=== PATIENT | male | born 1945 | race Caucasian/White ===

== ENCOUNTER 2018-01-21 12:48 | Inpatient (IN) | payer MEDICARE, OTHER ==
[~2018-01-21] VITALS: Ht 182.9 cm; Wt 92.7 kg
[~2018-01-21 12:48] MED LIST: ALB0.5UD IH; ALBU6.7H INH; ALPR-624 PO; ASPI-1265 PO; ATOR10TA87 PO; BUDE10.2 INH; CARCD120C PO; CHOL100046 PO; CITA20TA19 PO; DABI150C PO; HCTZ25T PO; LISI-600 PO; OMEG10006 PO; OMEP20TA5 PO; POTA20TA19 PO; TIOT18CA7 IH; TRAM50TA2 PO; TRAZ-91 PO; [UNRECOGNIZED DRUG - CODE] PO
[2018-01-21 13:49] LABS: BASOPHILS % (AUTO) 0.2 % (0-1); EOSINOPHILS # (AUTO) 0.3 X10'3 (0-0.9); EOSINOPHILS % (AUTO) 2.4 % (0-6); HEMATOCRIT 45.5 % (42.0-52.0); HEMOGLOBIN 14.6 g/dl (14.0-17.9); LYMPHOCYTES # (AUTO) 1.1 X10'3 (1.1-4.8); MEAN CORPUSCULAR HEMOGLOBIN 29.1 PG (27.0-31.0); MEAN CORPUSCULAR VOLUME 90.9 FL (78-98); MONOCYTES # (AUTO) 1.1 X10'3 (0-0.9); MONOCYTES % (AUTO) 8.7 % (2-12); NEUTROPHILS # (AUTO) 9.8 X10'3 (1.8-7.7); NEUTROPHILS % (AUTO) 79.7 % (42-75); PLATELET COUNT 390 X10'3 (140-440); RED BLOOD COUNT 5.01 X10'6 (4.70-6.10); RED CELL DISTRIBUTION WIDTH 13.3 % (11.5-14.5); WHITE BLOOD COUNT 12.3 X10'3 (4.5-11.0)
[2018-01-21] MEDS ORDERED: normal saline 1000ML IV soln IVB ONE (13:50)
[2018-01-21] MEDS ORDERED: levoFLOXACIN-Levaquin 750MG/D5 150 ML IV ONE (13:55)
[2018-01-21 14:05] LABS: ALANINE AMINOTRANSFERASE 26 U/L (12-78); ALBUMIN 3.3 G/DL (3.4-5.0); ALBUMIN/GLOBULIN RATIO 0.7 (1.1-1.5); ALKALINE PHOSPHATASE 116 IU/L (46-116); ANION GAP 6 (8-16); ASPARTATE AMINO TRANSFERASE 23 U/L (10-37); BILIRUBIN,TOTAL 0.6 MG/DL (0.1-1.0); BLOOD UREA NITROGEN 20 MG/DL (7-18); BUN/CREATININE RATIO 13.3 (5.4-32.0); CALCIUM 9.3 MG/DL (8.5-10.1); CHLORIDE 87 MMOL/L (99-107); GLUCOSE 175 MG/DL (70-104); SODIUM 132 MMOL/L (135-145); TOTAL CARBON DIOXIDE 39.5 MMOL/L (24-32); eGFR 46 ML/MIN
[2018-01-21 14:06] LABS: POTASSIUM 2.4 MMOL/L (3.5-5.1)
[2018-01-21] MEDS ORDERED: potassium Cl oral solution 20 MEQ/15 ML PO ONE (14:10)
[2018-01-21 14:13] LABS: INR 1.4 INR; PARTIAL THROMBOPLASTIN TIME 49 SECONDS (22-32); PROTHROMBIN TIME 13.7 SECONDS (9.0-12.0)
[2018-01-21] MEDS ORDERED: potassium Cl 40MEQ/NS 500ml 500 ML IV PRN (15:40)
[2018-01-21] MEDS ORDERED: potassium Cl 20 mEq SR tablet PO PRN (15:40)
[2018-01-21] MEDS ORDERED: mag hydrox/Alum hydrox/simeth 30ml oral suspension PO PRN (15:40)
[2018-01-21] MEDS ORDERED: ondansetron/PF 4mg/2ml inj IV PRN (15:40)
[2018-01-21] MEDS ORDERED: acetaminophen 325mg tablet PO PRN (15:40)
[2018-01-21] MEDS ORDERED: magnesium hydroxide 30ml (MOM) UD suspension PO PRN (15:40)
[2018-01-21] MEDS: K and/or MAG REPLACEMENT MC SCH (15:40)
[2018-01-21] MEDS ORDERED: NITR0.4T51 SL (16:01)
[2018-01-21] MEDS ORDERED: COLC0.6T69 PO (16:01)
[2018-01-21] MEDS ORDERED: TRAZ-218 PO (16:01)
[2018-01-21] MEDS ORDERED: FURO40TA4 PO (16:01)
[2018-01-21] MEDS ORDERED: LISI-600 PO (16:01)
[2018-01-21] MEDS ORDERED: HYDR25TA4 PO (16:01)
[2018-01-21] MEDS ORDERED: traMADol 50MG tablet PO PRN (17:25)
[2018-01-21] MEDS ORDERED: nitroGLYCERIN 0.4mg SUBLingual tab SL PRN (17:25)
[2018-01-21] MEDS ORDERED: colchicine 0.6mg tablet PO PRN (17:25)
[2018-01-21] MEDS ORDERED: non-formulary drug (Albuterol Sulfate (Proventil Hfa) 2 PUFFS) INH PRN (17:25)
[2018-01-21] MEDS ORDERED: ALPRAZolam 0.5mg tablet PO PRN (17:25)
[2018-01-21] MEDS ORDERED: albuterol 2.5 mg/0.5ml nebule NEB PRN (17:25)
[2018-01-21] MEDS ORDERED: albuterol 2.5 MG/3 ML nebule NEB PRN (17:48)
[2018-01-21] MEDS: normal saline 1000ml 1,000 ML IV SCH (17:59)
[2018-01-21 19:00] VITALS: BP 143/48
[2018-01-21] MEDS ORDERED: budesonide 0.5mg/2ml UD nebule IH SCH (20:00)
[2018-01-21] MEDS ORDERED: albuterol 2.5 MG/3 ML nebule NEB SCH (20:00)
[2018-01-21] MEDS ORDERED: heparin, porcine 5000 units/ml vial SQ SCH (20:00)
[2018-01-21] MEDS ORDERED: ipratropium 0.5 MG/2.5ML nebule IH SCH (20:00)
[2018-01-21] MEDS: budesonide 0.5mg/2ml UD nebule IH SCH (20:21)
[2018-01-21] MEDS: ipratropium/albuterol 3ml nebule NEB SCH (20:21)
[2018-01-21] MEDS: dabigatran 150mg capsule PO SCH (20:59)
[2018-01-21] MEDS: potassium Cl 20 mEq SR tablet PO PRN (20:59)
[2018-01-21] MEDS ORDERED: atorvastatin 10mg tablet PO SCH (21:00)
[2018-01-21] MEDS ORDERED: lisinopril 20mg tablet PO SCH (21:00)
[2018-01-21] MEDS ORDERED: traZODone 50mg tablet PO SCH (21:00)
[2018-01-22] VITALS: BP 114/51
[2018-01-22] MEDS: normal saline 1000ml 1,000 ML IV SCH ×2 (01:53→11:38)
[2018-01-22] MEDS: potassium Cl 20 mEq SR tablet PO PRN (01:53)
[2018-01-22] MEDS: ipratropium/albuterol 3ml nebule NEB SCH ×3 (02:36→14:38)
[2018-01-22 05:15] LABS: BASOPHILS % (AUTO) 0.2 % (0-1); EOSINOPHILS # (AUTO) 0.3 X10'3 (0-0.9); EOSINOPHILS % (AUTO) 3.2 % (0-6); HEMATOCRIT 38.5 % (42.0-52.0); HEMOGLOBIN 12.4 g/dl (14.0-17.9); LYMPHOCYTES # (AUTO) 1.1 X10'3 (1.1-4.8); LYMPHOCYTES % (AUTO) 11.9 % (21-51); MEAN CORPUSCULAR HEMOGLOBIN 29.5 PG (27.0-31.0); MEAN CORPUSCULAR HGB CONC 32.1 % (33.0-36.5); MEAN CORPUSCULAR VOLUME 91.8 FL (78-98); MEAN PLATELET VOLUME 8.2 FL (7.4-10.4); MONOCYTES # (AUTO) 1.1 X10'3 (0-0.9); MONOCYTES % (AUTO) 11.9 % (2-12); NEUTROPHILS # (AUTO) 6.8 X10'3 (1.8-7.7); NEUTROPHILS % (AUTO) 72.8 % (42-75); PLATELET COUNT 301 X10'3 (140-440); RED BLOOD COUNT 4.19 X10'6 (4.70-6.10); RED CELL DISTRIBUTION WIDTH 13.5 % (11.5-14.5); WHITE BLOOD COUNT 9.3 X10'3 (4.5-11.0)
[2018-01-22 05:24] LABS: ALBUMIN 2.4 G/DL (3.4-5.0); ANION GAP 6 (8-16); BLOOD UREA NITROGEN 17 MG/DL (7-18); BUN/CREATININE RATIO 16.8 (5.4-32.0); CALCIUM 8.2 MG/DL (8.5-10.1); CHLORIDE 95 MMOL/L (99-107); CREATININE 1.01 MG/DL (0.60-1.10); GLUCOSE 97 MG/DL (70-104); SODIUM 139 MMOL/L (135-145); TOTAL CARBON DIOXIDE 38.3 MMOL/L (24-32); eGFR 73 ML/MIN
[2018-01-22 05:28] LABS: POTASSIUM 2.4 MMOL/L (3.5-5.1)
[2018-01-22] MEDS: potassium Cl 40MEQ/NS 500ml 500 ML IV PRN ×2 (05:42→10:19)
[2018-01-22 07:00] VITALS: BP 113/60
[2018-01-22] MEDS ORDERED: pantoprazole 40mg Tablet.DR PO SCH (07:30)
[2018-01-22] MEDS ORDERED: vitamin D (cholecalciferol) 1,000 unit tablet PO SCH (08:00)
[2018-01-22] MEDS ORDERED: citalopram 20mg tablet PO SCH (08:00)
[2018-01-22] MEDS ORDERED: acetaZOLAMIDE 250mg tablet PO SCH (08:00)
[2018-01-22] MEDS: K and/or MAG REPLACEMENT MC SCH (08:17)
[2018-01-22] MEDS: dabigatran 150mg capsule PO SCH (09:21)
[2018-01-22] MEDS: budesonide 0.5mg/2ml UD nebule IH SCH (09:27)
[2018-01-22] MEDS ORDERED: diltiazem CD 120mg capsule (once-daily) PO SCH (21:00)
== END 2018-01-22 17:35 | disposition home or self-care (01) | DRG 682 ==
LOC: ER 12:48 → ED HOLD 15:38 → SUR 3N 17:02
PROVIDERS: ADMIT Family Medicine; ATTEND Internal Medicine
DX: N17.9 Acute kidney failure, unspecified (principal); E43 Unspecified severe protein-calorie malnutrition; C34.90 Malignant neoplasm of unspecified part of unspecified bronchus or lung; E87.1 Hypo-osmolality and hyponatremia; J44.1 Chronic obstructive pulmonary disease with (acute) exacerbation; J96.11 Chronic respiratory failure with hypoxia; I48.92 Unspecified atrial flutter; C78.7 Secondary malignant neoplasm of liver and intrahepatic bile duct; E78.5 Hyperlipidemia, unspecified; E87.6 Hypokalemia; F43.10 Post-traumatic stress disorder, unspecified; I12.9 Hypertensive chronic kidney disease with stage 1 through stage 4 chronic kidney disease, or unspecified chronic kidney disease; I25.10 Atherosclerotic heart disease of native coronary artery without angina pectoris; I48.0 Paroxysmal atrial fibrillation; K21.9 Gastro-esophageal reflux disease without esophagitis; N18.3 Chronic kidney disease, stage 3 (moderate); Z91.030 Bee allergy status; Z88.5 Allergy status to narcotic agent; Z91.018 Allergy to other foods; Z79.899 Other long term (current) drug therapy; Z79.01 Long term (current) use of anticoagulants; Z87.891 Personal history of nicotine dependence
CPT/HCPCS: 36415; 71045; 71250; 80048; 80053; 83605; 83880; 84132; 84484; 85025; 85610; 85730; 87040; 87070; 93005; 94640; 94760; 96365; 99285; G0378; J1956; J3480; J7030; J7611; J7626